=== PATIENT | male | born 1950 | race Caucasian/White ===

== ENCOUNTER → 2017-05-15 | Outpatient (CLI) | payer MEDICARE ==
[~2017-05-15] MED LIST: ATOR20TA PO; BETA-SITOSTEROL PO; CHOL200024 PO; FINA5TAB4 PO; IRBE1TAB61 PO; MULT-34 PO; OMEP-110 PO; RANI300T PO; TADA20TA PO; TAMS0.4C2 PO; TESTOSTERONE SC; VITA1TAB19 PO; [UNRECOGNIZED DRUG - REMARK] PO
== END | disposition home or self-care (01) ==
LOC: STAR 11:25
PROVIDERS: ATTEND Surgery
DX: Z01.818 Encounter for other preprocedural examination (principal); K40.90 Unilateral inguinal hernia, without obstruction or gangrene, not specified as recurrent
CPT/HCPCS: 93005

== ENCOUNTER 2017-05-21 07:03 | Day surgery (SDC) | payer MEDICARE ==
[~2017-05-21] VITALS: Ht 167.6 cm; Wt 86.0 kg
[2017-05-21] MEDS ORDERED: BUPIVACAINE/PF-EPI 0.5% 1:200K ONE (07:04)
[2017-05-21] MEDS ORDERED: LACTATED RINGERS 1,000 ML IV SCH (07:32)
[2017-05-21 07:36] VITALS: BP 120/78
[2017-05-21] MEDS ORDERED: FENTANYL PF 100 MCG/2ML IV PRN (08:00)
[2017-05-21] MEDS ORDERED: ACETAMINOPHEN 325 MG TABLET PO PRN (08:00)
[2017-05-21] MEDS ORDERED: PROMETHAZINE 25 MG/ML, 1ML IV PRN (08:00)
[2017-05-21] MEDS ORDERED: OXYcodone 5 MG/5 ML ORAL.SOL UDC PO PRN (08:00)
[2017-05-21] MEDS ORDERED: HYDROmorphone 1 MG/ML, 1ML IV PRN (08:00)
[2017-05-21] MEDS ORDERED: hydrALAzine 20 MG/ML, 1ML IV PRN (08:00)
[2017-05-21] MEDS ORDERED: METOPROLOL 1 MG/ML, 5ML IV PRN (08:00)
[2017-05-21] MEDS ORDERED: FENTANYL PF 100 MCG/2ML ONE (08:32)
[2017-05-21] MEDS ORDERED: ACETAMINOPHEN 650 MG/20.3 ML UDC ONE (10:30)
[2017-05-21] MEDS ORDERED: ACETAMINOPHEN 325 MG/10.15 ML UDC ONE (10:30)
[2017-05-21] MEDS ORDERED: OXYcodone 5 MG/5 ML ORAL.SOL UDC ONE (10:30)
[2017-05-21] MEDS ORDERED: PROPOFOL 10 MG/ML, 20ML ONE (16:17)
[2017-05-21] MEDS ORDERED: ONDANSETRON 2MG/ML, 2ML ONE (16:17)
[2017-05-21] MEDS ORDERED: CEFAZOLIN 1,000 MG ONE (16:17)
[2017-05-21] MEDS ORDERED: KETOROLAC 30 MG/1 ML ONE (16:17)
== END 2017-05-21 12:50 ==
LOC: OUT 07:03
PROVIDERS: ATTEND Surgery
DX: K40.90 Unilateral inguinal hernia, without obstruction or gangrene, not specified as recurrent (principal); K21.9 Gastro-esophageal reflux disease without esophagitis; E78.00 Pure hypercholesterolemia, unspecified; I10 Essential (primary) hypertension; Z98.890 Other specified postprocedural states; Z79.82 Long term (current) use of aspirin
CPT/HCPCS: 49505; C1781; J0690; J1885; J2405; J2704; J3010; J7120